=== PATIENT | female | born 1975 | race Caucasian/White ===

== ENCOUNTER 2018-06-28 22:36 | Emergency (ER) | payer MEDICAID ==
[~2018-06-28] VITALS: Ht 160 cm; Wt 59.0 kg
[~2018-06-28 22:36] MED LIST: FOLI-43; LACO200T2; PHEN100C4; PHEN32.43; Q PAP; QUET25TA; RANI150C12; SERT100T; TOP100; [UNRECOGNIZED DRUG - CODE]
[2018-06-28] MEDS ORDERED: IBUPROFEN 600MG TABLET PO ONE (23:15)
[2018-06-28 23:45] VITALS: BP 124/77
== END 2018-06-29 06:57 | disposition home or self-care (01) ==
LOC: ER 22:36
DX: S00.83XA Contusion of other part of head, initial encounter (principal); Y04.2XXA Assault by strike against or bumped into by another person, initial encounter; Y93.89 Activity, other specified; Y92.89 Other specified places as the place of occurrence of the external cause; Y99.8 Other external cause status
CPT/HCPCS: 70450; 70486; 81025; 99284

== ENCOUNTER 2018-06-29 13:37 | Inpatient (IN) | payer OTHER, MEDICAID ==
[~2018-06-29] VITALS: Ht 157.5 cm; Wt 59.0 kg
[2018-06-29] MEDS ORDERED: SODIUM CHLORIDE 0.9% 1,000 ML IV ONE (13:48)
[2018-06-29 14:51] LABS: BASOPHILS % 0.3 % (0.0-2.0); EOSINOPHILS % 0.2 % (0.0-5.0); HEMATOCRIT. 41.1 % (36.0-48.0); HEMOGLOBIN. 14.1 g/dL (12.0-16.0); LYMPHOCYTES % 25.3 % (20.0-50.0); MEAN CORPUSCULAR HEMOGLOBIN 34.2 pg (28.0-32.0); MEAN CORPUSCULAR VOLUME 99.5 fL (81.0-99.0); MONOCYTES % 10.9 % (2.0-8.0); NEUTROPHILS % 63.3 % (40.0-76.0); PLATELET 193 x1000/uL (130-400); RED BLOOD CELL COUNT 4.13 mill/uL (4.2-5.4); RED CELL DISTRIBUTION WIDTH 12.9 % (11.6-14.6)
[2018-06-29 14:56] LABS: CHLORIDE 106 mEq/L (98-107)
[2018-06-29 14:58] LABS: INR 1.1; PROTHROMBIN TIME 10.8 sec (9.1-11.1)
[2018-06-29 15:04] LABS: ETHANOL BLOOD < 10 mg/dL
[2018-06-29 15:05] LABS: HCG SCREEN NEGATIVE
[2018-06-29 15:09] LABS: PHENOBARBITAL 11.9 ug/mL (15.0-40.0)
[2018-06-29 15:13] LABS: CARBAMAZEPINE < 0.5 ug/mL (4-12); VALPROIC ACID < 3.0 ug/mL (50-100)
[2018-06-29] MEDS ORDERED: LEVETIRACETAM 1000MG/100ML 100 ML IV ONE ×2 (15:15→16:30)
[2018-06-29] MEDS ORDERED: LORAZEPAM 2MG/ML CPJ ONE (16:20)
[2018-06-29] MEDS ORDERED: LORAZEPAM 2MG/ML CPJ IV ONE (17:00)
[2018-06-29 21:00] VITALS: BP 116/81
[2018-06-29] MEDS: SODIUM CHLORIDE 0.9% INJ 3ML FLUSH IVF SCH (22:00)
[2018-06-29] MEDS ORDERED: ACETAMINOPHEN 650MG/20.3ML UDC GT PRN (22:30)
[2018-06-29] MEDS ORDERED: ACETAMINOPHEN 650MG SUPP PR PRN (22:30)
[2018-06-29] MEDS ORDERED: ACETAMINOPHEN 325MG TABLET PO PRN (22:30)
[2018-06-29] MEDS ORDERED: ONDANSETRON 4MG ODT PO PRN (22:30)
[2018-06-29] MEDS ORDERED: LORAZEPAM 2MG/ML CPJ IV PRN (22:30)
[2018-06-29] MEDS ORDERED: DIPHENHYDRAMINE 50MG/ML VIAL IV PRN (22:30)
[2018-06-29] MEDS ORDERED: MAGNESIUM/ALUMINUM HYDROXIDE/SIMETHICONE 30ML UDC PO PRN (22:30)
[2018-06-29] MEDS ORDERED: IPRATROPIUM/ALBUTEROL 0.5-3(2.5)MG/3ML NEB INH PRN (22:30)
[2018-06-29] MEDS ORDERED: CLONIDINE 0.1MG TABLET PO PRN (22:30)
[2018-06-29] MEDS ORDERED: HYDROCODONE/ACETAMINOPHEN 5/325MG TABLET PO PRN (22:30)
[2018-06-29] MEDS ORDERED: NA PHOS,M-B/NA PHOS,DI-BA ENEMA 118ML PR PRN (22:30)
[2018-06-29] MEDS: TOPIRAMATE 100MG TABLET PO SCH (23:45)
[2018-06-29] MEDS: SERTRALINE HCL 100MG TABLET PO SCH (23:45)
[2018-06-29] MEDS: PHENYTOIN SODIUM EXTENDED 100MG CAPSULE PO SCH (23:45)
[2018-06-29] MEDS: SODIUM CHLORIDE 0.45% 1,000 ML IV SCH (23:46)
[2018-06-30] VITALS (7 sets, daily range): BP systolic 97–129; BP diastolic 54–81
[2018-06-30 06:13] LABS: BASOPHILS % 0.3 % (0.0-2.0); HEMATOCRIT. 39.1 % (36.0-48.0); HEMOGLOBIN. 13.2 g/dL (12.0-16.0); MEAN CORPUSCULAR HEMOGLOBIN 33.6 pg (28.0-32.0); MEAN CORPUSCULAR VOLUME 99.5 fL (81.0-99.0); MEAN PLATELET VOLUME 8.5 fl (7.4-10.4); MONOCYTES % 12.6 % (2.0-8.0); NEUTROPHILS % 63.1 % (40.0-76.0); PLATELET 185 x1000/uL (130-400); RED BLOOD CELL COUNT 3.93 mill/uL (4.2-5.4); RED CELL DISTRIBUTION WIDTH 13.1 % (11.6-14.6)
[2018-06-30] MEDS: SODIUM CHLORIDE 0.9% INJ 3ML FLUSH IVF SCH ×2 (06:41→22:00)
[2018-06-30] MEDS: SERTRALINE HCL 100MG TABLET PO SCH (08:39)
[2018-06-30] MEDS: TOPIRAMATE 100MG TABLET PO SCH (08:39)
[2018-06-30 09:26] LABS: CHLORIDE 111 mEq/L (98-107)
[2018-06-30 09:32] LABS: LDL CHOLESTEROL 93 mg/dL (5-100)
[2018-06-30 09:33] LABS: HDL CHOLESTEROL 50 mg/dL (40-59)
[2018-06-30 11:17] LABS: CLARITY URINE CLEAR (CLEAR); COLOR URINE YELLOW (YELLOW); KETONES URINE 1+ (NEGATIVE); LEUKOCYTE ESTERASE URINE 2+ (NEGATIVE); NITRITE URINE NEGATIVE (NEGATIVE); OCCULT BLOOD URINE NEGATIVE (NEGATIVE); PROTEIN URINE NEGATIVE (NEGATIVE); UROBILINOGEN URINE 0.2 E.U./dL (0.2-1.0)
[2018-06-30 11:30] LABS: *AMPHETAMINES SCREEN URINE NEGATIVE (NEGATIVE); *BENZODIAZEPINES SCREEN URINE NEGATIVE (NEGATIVE); *COCAINE SCREEN URINE NEGATIVE (NEGATIVE); CANNABINOID URINE SCREEN NEGATIVE (NEGATIVE); METHADONE URINE SCREEN NEGATIVE (NEGATIVE); OPIATES URINE SCREEN NEGATIVE (NEGATIVE); PHENCYCLIDINE URINE SCREEN NEGATIVE (NEGATIVE)
[2018-06-30 11:36] LABS: *BARBITURATES SCREEN URINE PRESUMTIVE POSITIVE (NEGATIVE)
[2018-06-30] MEDS: SODIUM CHLORIDE 0.45% 1,000 ML IV SCH (15:40)
[2018-06-30] MEDS ORDERED: NON FORMULARY PATIENT HOME MED EA XX SCH (16:15)
[2018-06-30] MEDS ORDERED: LACOSAMIDE 200 MG TABLET (VIMPAT) PO SCH (18:00)
[2018-06-30] MEDS: PHENYTOIN SODIUM EXTENDED 100MG CAPSULE PO SCH (23:13)
[2018-07-01 00:32] VITALS: BP 120/85
== END 2018-07-01 01:05 | disposition home or self-care (01) | DRG 53 ==
LOC: ER 14:25 → 6WST 17:09 → ENRESERV 19:46
PROVIDERS: ADMIT Family Medicine; ATTEND Family Medicine
DX: G40.419 Other generalized epilepsy and epileptic syndromes, intractable, without status epilepticus (principal); B69.0 Cysticercosis of central nervous system; F32.9 Major depressive disorder, single episode, unspecified; E86.0 Dehydration; Z79.899 Other long term (current) drug therapy
CPT/HCPCS: 36415; 70450; 80053; 80061; 80156; 80165; 80184; 80185; 80305; 80339; 81003; 84703; 85025; 85610; 96365; 96372; 99285; G0482; J1953; J2060; J7030

== ENCOUNTER 2020-04-17 18:19 | Emergency (ER) | payer MEDICAID ==
[~2020-04-17] VITALS: Ht 167.6 cm; Wt 73.0 kg
[~2020-04-17 18:19] MED LIST changes: -PHEN32.43; +PHEN32.46
[2020-04-17] MEDS ORDERED: SODIUM CHLORIDE 0.9% 1,000 ML IV ONE (19:00)
[2020-04-17] MEDS ORDERED: LORAZEPAM 2MG/ML CPJ IV ONE (19:00)
[2020-04-17 19:36] VITALS: BP 108/80
[2020-04-17 19:47] LABS: HEMATOCRIT. 36.9 % (36.0-48.0); HEMOGLOBIN. 12.8 g/dL (12.0-16.0); MEAN CORPUSCULAR HEMOGLOBIN 34.1 pg (28.0-32.0); MEAN CORPUSCULAR VOLUME 98.3 fL (81.0-99.0); MEAN PLATELET VOLUME 8.7 fl (7.4-10.4); PLATELET 204 x1000/uL (130-400); RED BLOOD CELL COUNT 3.76 mill/uL (4.2-5.4); RED CELL DISTRIBUTION WIDTH 13.1 % (11.6-14.6)
[2020-04-17 19:58] LABS: CHLORIDE 107 mEq/L (98-107)
[2020-04-17] MEDS ORDERED: PHENYTOIN 100 MG/4 ML UDC NG ONE (21:00)
[2020-04-17] MEDS ORDERED: PHENYTOIN SODIUM EXTENDED 100MG CAPSULE PO ONE (21:00)
[2020-04-17] MEDS ORDERED: POTASSIUM CHLORIDE 20MEQ TABLET SR PO ONE (21:00)
[2020-04-17 21:24] LABS: PLATELET ESTIMATE NORMAL
[2020-04-17] MEDS ORDERED: ACETAMINOPHEN 325MG TABLET PO ONE (23:00)
== END 2020-04-17 23:39 | disposition home or self-care (01) ==
LOC: ER 18:19
DX: R56.9 Unspecified convulsions (principal); R51 Headache; E87.6 Hypokalemia; F20.9 Schizophrenia, unspecified; Z79.899 Other long term (current) drug therapy
CPT/HCPCS: 36415; 70450; 80053; 80185; 85025; 96374; 99284; J2060; J7030

== ENCOUNTER 2021-03-22 13:53 | Emergency (ER) | payer MEDICAID ==
[~2021-03-22] VITALS: Ht 165.1 cm; Wt 59.0 kg
[2021-03-22] MEDS ORDERED: OMEPRAZOLE (14:07)
[2021-03-22] MEDS ORDERED: IBUPROFEN 600MG TABLET PO STA (14:17)
[2021-03-22] MEDS ORDERED: ACETAMINOPHEN 325MG TABLET PO ONE (14:30)
[2021-03-22 14:48] LABS: CLARITY URINE CLEAR (CLEAR); COLOR URINE YELLOW (YELLOW); KETONES URINE NEGATIVE (NEGATIVE); LEUKOCYTE ESTERASE URINE NEGATIVE (NEGATIVE); NITRITE URINE NEGATIVE (NEGATIVE); OCCULT BLOOD URINE NEGATIVE (NEGATIVE); PH URINE 6.5 (4.5-8.0); PROTEIN URINE NEGATIVE (NEGATIVE); SPECIFIC GRAVITY URINE 1.011 (1.005-1.030); UROBILINOGEN URINE 0.2 E.U./dL (0.2-1.0)
[2021-03-22 15:00] LABS: BASOPHILS % 0.3 % (0.0-2.0); EOSINOPHILS % 0.5 % (0.0-5.0); HEMATOCRIT. 39.6 % (36.0-48.0); HEMOGLOBIN. 13.8 g/dL (12.0-16.0); LYMPHOCYTES % 25.3 % (20.0-50.0); MEAN CORPUSCULAR HEMOGLOBIN 34.7 pg (28.0-32.0); MEAN CORPUSCULAR VOLUME 99.3 fL (81.0-99.0); MONOCYTES % 7.5 % (2.0-8.0); NEUTROPHILS % 66.4 % (40.0-76.0); PLATELET 189 x1000/uL (130-400); RED BLOOD CELL COUNT 3.99 mill/uL (4.2-5.4); RED CELL DISTRIBUTION WIDTH 13.3 % (11.6-14.6)
[2021-03-22 15:04] LABS: CHLORIDE 109 mEq/L (98-107)
[2021-03-22 15:08] LABS: HCG SCREEN NEGATIVE
[2021-03-22] MEDS ORDERED: POTASSIUM CHLORIDE 20MEQ TABLET SR PO ONE (15:15)
[2021-03-22] MEDS ORDERED: IBUP-2028 MT (15:16)
[2021-03-22] MEDS ORDERED: HYDROCODONE/ACETAMINOPHEN 5/325MG TABLET PO ONE (16:00)
[2021-03-22 16:13] VITALS: BP 128/81
== END 2021-03-22 16:27 | disposition home or self-care (01) ==
LOC: ER 13:53
DX: R51.9 Headache, unspecified (principal); R10.31 Right lower quadrant pain; E87.6 Hypokalemia; F20.9 Schizophrenia, unspecified; G40.909 Epilepsy, unspecified, not intractable, without status epilepticus
CPT/HCPCS: 36415; 74176; 80053; 81003; 81025; 84703; 85025; 99285